=== PATIENT | male | born 1980 | race Caucasian/White ===

== ENCOUNTER → 2019-10-20 | Outpatient (REF) | payer OTHER ==
[~2019-10-20] MED LIST: FLUC150T PO
== END ==
LOC: M LAB REF 17:47
PROVIDERS: ATTEND Physician Assistant
DX: L90.5 Scar conditions and fibrosis of skin (principal)

== ENCOUNTER 2019-10-21 16:49 | Emergency (ER) | payer OTHER, SELFPAY ==
[~2019-10-21] VITALS: Ht 185.4 cm; Wt 83.5 kg
[2019-10-21] MEDS ORDERED: FLUC150T PO (17:01)
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
[2019-10-21] MEDS ORDERED: IBUPROFEN 400 MG TAB PO ONE (17:45)
[2019-10-21 18:05] VITALS: BP 126/88
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
== END 2019-10-21 18:06 | disposition home or self-care (01) ==
LOC: M ED 16:49
DX: S16.1XXA Strain of muscle, fascia and tendon at neck level, initial encounter (principal); T14.8XXA Other injury of unspecified body region, initial encounter; S40.011A Contusion of right shoulder, initial encounter; V18.0XXA Pedal cycle driver injured in noncollision transport accident in nontraffic accident, initial encounter; Y92.9 Unspecified place or not applicable; Y93.55 Activity, bike riding; Y99.9 Unspecified external cause status; Z72.0 Tobacco use; F12.10 Cannabis abuse, uncomplicated

== ENCOUNTER → 2021-04-23 | Outpatient (REF) | payer OTHER ==
[~2021-04-23] MED LIST changes: -FLUC150T PO; +FLUC150T9 PO
== END ==
LOC: M LAB REF 14:05
PROVIDERS: ATTEND Physician Assistant
DX: D23.71 Other benign neoplasm of skin of right lower limb, including hip (principal)